=== PATIENT | male | born 1995 | race Caucasian/White ===

== ENCOUNTER 2021-01-29 21:57 | Emergency (ER) | payer OTHER ==
[2021-01-29] MEDS ORDERED: IBUPROFEN800 MG PO (23:54)
== END 2021-01-30 00:50 | disposition home or self-care (01) ==
LOC: FER 21:57
DX: S60.131A Contusion of right middle finger with damage to nail, initial encounter (principal); M79.641 Pain in right hand; W01.198A Fall on same level from slipping, tripping and stumbling with subsequent striking against other object, initial encounter; Y92.89 Other specified places as the place of occurrence of the external cause; Y99.0 Civilian activity done for income or pay
CPT/HCPCS: 73130